=== PATIENT | female | born 1970 | race Hispanic/Latino ===

== ENCOUNTER 2020-02-01 23:33 | Emergency (ER) | payer OTHER ==
[~2020-02-01 23:33] MED LIST: LEVO500T2 PO
[2020-02-01 23:55] LABS: BASOPHILS % (AUTO) 0.4 % (0.0-5.0); EOSINOPHILS % (AUTO) 2.7 % (0.0-8.0); HEMATOCRIT 39.2 % (36-48); LYMPHOCYTES % (AUTO) 23.6 % (21.0-51.0); MEAN CORPUSCULAR HEMOGLOBIN 29.8 pg (27.0-33.0); MEAN CORPUSCULAR HGB CONC 33.4 g/dL (32.0-36.0); MEAN CORPUSCULAR VOLUME 89.3 fL (79-99); MONOCYTES % (AUTO) 6.5 % (3.0-13.0); NEUTROPHILS % (AUTO) 65.8 % (40.0-77.0); PLATELET COUNT (AUTO) 240 K/uL (130-400); RED BLOOD CELL COUNT(AUTO) 4.39 MIL/uL (4.00-5.50); RED CELL DISTRIBUTION WIDTH 11.9 % (11.0-15.5); WHITE BLOOD COUNT (AUTO) 6.8 K/uL (4.8-10.8)
[2020-02-02 00:04] LABS: POTASSIUM 3.7 mmol/L (3.5-5.1)
[2020-02-02 00:08] LABS: ALBUMIN 3.2 g/dL (3.5-5.0); BILIRUBIN,TOTAL 0.2 mg/dL (0.2-1.0); TOTAL PROTEIN, SERUM 6.3 g/dL (6.0-8.3)
[2020-02-02 00:15] LABS: INR 0.87 (0.85-1.15); PARTIAL THROMBOPLASTIN TIME 22.9 SEC (26.3-35.5); PROTHROMBIN TIME 9.4 SEC (9.6-11.6)
[2020-02-02] MEDS ORDERED: HYDROCORTISONE 25 MG SUPPOSITORY PR ONE (01:04)
== END 2020-02-02 01:12 | disposition home or self-care (01) ==
LOC: EDH 23:33
DX: K64.0 First degree hemorrhoids (principal); R03.0 Elevated blood-pressure reading, without diagnosis of hypertension; K45.8 Other specified abdominal hernia without obstruction or gangrene; Z90.49 Acquired absence of other specified parts of digestive tract; Z98.51 Tubal ligation status
CPT/HCPCS: 36415; 80053; 82150; 83690; 85025; 85610; 85730

== ENCOUNTER 2021-08-07 21:31 | Emergency (ER) | payer OTHER ==
[~2021-08-07] VITALS: Ht 152.4 cm; Wt 86.2 kg
[2021-08-07 21:49] VITALS: BP 119/90
[2021-08-07] MEDS ORDERED: ONDANSETRON 4MG INJ IVP ONE (22:30)
[2021-08-07] MEDS ORDERED: MORPHINE 2 MG SYG IVP ONE (22:30)
[2021-08-07] MEDS ORDERED: 0.9%NACL 1000ML 1,000 ML IV ONE (22:30)
[2021-08-07 22:31] LABS: APPEARANCE,URINE Clear (CLEAR); BASOPHILS % (AUTO) 0.6 % (0.0-5.0); BILIRUBIN,URINE Negative (NEGATIVE); COLOR,URINE Yellow (YELLOW); EOSINOPHILS % (AUTO) 2.4 % (0.0-8.0); GLUCOSE, URINE (UA) Negative (NEGATIVE); HEMATOCRIT 35.4 % (36-48); KETONES,URINE Negative (NEGATIVE); LEUKOCYTE ESTERASE ,URINE Moderate (NEGATIVE); LYMPHOCYTES % (AUTO) 25.2 % (21.0-51.0); MEAN CORPUSCULAR HEMOGLOBIN 22.5 pg (27.0-33.0); MEAN CORPUSCULAR HGB CONC 30.5 g/dL (32.0-36.0); MEAN CORPUSCULAR VOLUME 73.9 fL (79-99); MONOCYTES % (AUTO) 6.4 % (3.0-13.0); NITRATE,URINE Negative (NEGATIVE); OCCULT BLOOD,URINE Negative (NEGATIVE); PH,URINE 5.5 (5.0-8.0); PLATELET COUNT (AUTO) 265 K/uL (130-400); PROTEIN,URINE Negative (NEGATIVE); RED BLOOD CELL COUNT(AUTO) 4.79 MIL/uL (4.00-5.50); RED CELL DISTRIBUTION WIDTH 18.3 % (11.0-15.5); UROBILINOGEN,URINE 0.2 mg/dL (0.2-1.0); WHITE BLOOD COUNT (AUTO) 7.2 K/uL (4.8-10.8)
[2021-08-07 22:44] LABS: AMORPHOUS SEDIMENT,UR Few /LPF (None Seen); BACTERIA,URINE Few /HPF (None Seen); CALCIUM OXALATE CRYSTALS,UR Moderate /LPF (None Seen); MUCUS,URINE Rare LPF (None Seen); RBC,URINE None Seen /HPF (0-1)
[2021-08-07 22:45] LABS: CREATININE 0.8 mg/dL (0.5-1.5); POTASSIUM 3.5 mmol/L (3.5-5.1)
[2021-08-07 22:50] LABS: ALBUMIN 3.8 g/dL (3.5-5.0); BILIRUBIN,TOTAL 0.3 mg/dL (0.2-1.0); TOTAL PROTEIN, SERUM 7.1 g/dL (6.0-8.3)
[2021-08-08] MEDS ORDERED: MORPHINE 2 MG SYG ONE (00:13)
[2021-08-08] MEDS ORDERED: 0.9%NACL 1000ML 1,000 ML IV ONE (00:13)
[2021-08-08] MEDS ORDERED: ONDANSETRON 4MG INJ ONE (00:13)
[2021-08-08] MEDS ORDERED: KETOROLAC 30MG VIAL (30MG/ML) IM ONE (00:30)
[2021-08-08] MEDS ORDERED: LEVOFLOXACIN 500 MG TABLET PO SCH (00:30)
[2021-08-08] MEDS ORDERED: PHENAZOPYRIDINE HCL 200 MG TABLET PO ONE (01:30)
[2021-08-08 02:01] VITALS: BP 127/68
[2021-08-08] MEDS ORDERED: IBUP-2070 PO (02:01)
[2021-08-08] MEDS ORDERED: CIPR-278 PO (02:01)
[2021-08-08] MEDS ORDERED: PHEN-847 PO (02:01)
[2021-08-08] MEDS ORDERED: LOPE2 PO (02:01)
[2021-08-08] MEDS ORDERED: FAMOTIDINE 20MG TAB ONE (02:57)
[2021-08-08] MEDS ORDERED: DiphenhydrAMINE HCL 50 MG/ML VIAL ONE (02:57)
[2021-08-08] MEDS ORDERED: SOLU-MEDROL 125MG VIAL ONE (02:58)
[2021-08-08] MEDS ORDERED: FAMOTIDINE 20MG TAB PO ONE (03:00)
[2021-08-08] MEDS ORDERED: SOLU-MEDROL 125MG VIAL IM ONE (03:00)
[2021-08-08] MEDS ORDERED: DiphenhydrAMINE HCL 50 MG/ML VIAL IM ONE (03:00)
[2021-08-08 03:26] VITALS: BP 132/65
== END 2021-08-08 05:16 | disposition home or self-care (01) ==
LOC: EDH 21:31
DX: K52.9 Noninfective gastroenteritis and colitis, unspecified (principal); N30.00 Acute cystitis without hematuria; K43.9 Ventral hernia without obstruction or gangrene; I10 Essential (primary) hypertension; F41.9 Anxiety disorder, unspecified; Z79.899 Other long term (current) drug therapy
CPT/HCPCS: 36415; 74176; 80053; 81001; 82550; 83690; 84484; 85025; 87088; 96361; 96372 ×2; 96374; 96375; 99285; J1200; J1885; J2405; J2930; J7030

== ENCOUNTER 2023-03-18 20:43 | Emergency (ER) | payer OTHER ==
[~2023-03-18] VITALS: Ht 152.4 cm; Wt 88.5 kg
[~2023-03-18 20:43] MED LIST changes: +CIPR-278 PO; +IBUP-2070 PO; +LOPE2 PO; +PHEN-847 PO
[2023-03-18] MEDS ORDERED: ONDANSETRON 4MG TABLET PO ONE (21:00)
[2023-03-18] MEDS ORDERED: ONDANSETRON ODT 4MG TAB ONE (21:02)
[2023-03-18 21:15] VITALS: BP 128/74
[2023-03-18 21:22] LABS: BASOPHILS % (AUTO) 0.6 % (0.0-5.0); EOSINOPHILS % (AUTO) 3.2 % (0.0-8.0); HEMATOCRIT 34.4 % (36-48); LYMPHOCYTES % (AUTO) 23.5 % (21.0-51.0); MEAN CORPUSCULAR HEMOGLOBIN 21.4 pg (27.0-33.0); MEAN CORPUSCULAR HGB CONC 29.4 g/dL (32.0-36.0); MEAN CORPUSCULAR VOLUME 72.9 fL (79-99); MONOCYTES % (AUTO) 10.6 % (3.0-13.0); NEUTROPHILS % (AUTO) 61.7 % (40.0-77.0); PLATELET COUNT (AUTO) 207 K/uL (130-400); RED BLOOD CELL COUNT(AUTO) 4.72 MIL/uL (4.00-5.50); RED CELL DISTRIBUTION WIDTH 16.2 % (11.0-15.5); WHITE BLOOD COUNT (AUTO) 4.7 K/uL (4.8-10.8)
[2023-03-18] MEDS ORDERED: 0.9%NACL 1000ML 2,000 ML IV ONE (21:30)
[2023-03-18 21:36] LABS: CREATININE 0.8 mg/dL (0.5-1.5); POTASSIUM 3.4 mmol/L (3.5-5.1)
[2023-03-18 21:40] LABS: ALBUMIN 3.8 g/dL (3.5-5.0); TOTAL PROTEIN, SERUM 7.2 g/dL (6.0-8.3)
[2023-03-18] MEDS ORDERED: DIPH1TAB PO (22:07)
[2023-03-18] MEDS ORDERED: ONDA-104 PO (22:07)
== END 2023-03-18 23:57 | disposition home or self-care (01) ==
LOC: EDH 20:43
DX: K52.9 Noninfective gastroenteritis and colitis, unspecified (principal); I10 Essential (primary) hypertension; F41.9 Anxiety disorder, unspecified; Z20.822 Contact with and (suspected) exposure to COVID-19; Z79.899 Other long term (current) drug therapy; Z90.49 Acquired absence of other specified parts of digestive tract; Z98.890 Other specified postprocedural states
CPT/HCPCS: 99283; 96360; 87635; 96361; 82150; 80053; 83690; 85025; 87804 ×2; 36415; C9803; J7030

== ENCOUNTER 2024-06-08 13:50 | Emergency (ER) | payer BC ==
[~2024-06-08] VITALS: Ht 152.4 cm; Wt 88.5 kg
[~2024-06-08 13:50] MED LIST changes: -CIPR-278 PO; +DIPH1TAB PO; -IBUP-2070 PO; -LEVO500T2 PO; -LOPE2 PO; +ONDA-104 PO; -PHEN-847 PO
[2024-06-08 15:47] LABS: BASOPHILS # (AUTO) 0.04 K/uL (0.00-0.20); BASOPHILS % (AUTO) 0.5 % (0.0-5.0); EOSINOPHILS # (AUTO) 0.08 K/uL (0.00-0.70); HEMATOCRIT 27.1 % (36-48); IMMATURE GRANULOCYTE ABSOLUTE 0.06 K/uL (0-1); LYMPHOCYTES % (AUTO) 23.6 % (21.0-51.0); MEAN CORPUSCULAR HEMOGLOBIN 17.9 pg (27.0-33.0); MEAN CORPUSCULAR HGB CONC 26.9 g/dL (32.0-36.0); MEAN CORPUSCULAR VOLUME 66.4 fL (79-99); MONOCYTES # (AUTO) 0.7 K/uL (0.1-1.0); MONOCYTES % (AUTO) 8.4 % (3.0-13.0); NEUTROPHILS # (AUTO) 5.4 K/uL (1.8-7.7); NEUTROPHILS % (AUTO) 65.8 % (40.0-77.0); PLATELET COUNT (AUTO) 209 K/uL (130-400); RED BLOOD CELL COUNT(AUTO) 4.08 MIL/uL (4.00-5.50); WHITE BLOOD COUNT (AUTO) 8.3 K/uL (4.8-10.8)
[2024-06-08 15:56] LABS: CREATININE 0.7 mg/dL (0.5-1.0); POTASSIUM 4.1 mmol/L (3.5-5.1)
[2024-06-08 16:00] LABS: ALBUMIN 3.3 g/dL (3.5-5.0); BILIRUBIN,TOTAL 0.5 mg/dL (0.2-1.0); TOTAL PROTEIN, SERUM 7.7 g/dL (6.0-8.3)
[2024-06-08 16:12] LABS: RAPID GROUP A STREP negative (NEGATIVE)
[2024-06-08 16:15] LABS: SARS-CoV-2, RNA, NAAT NEGATIVE SARS CoV-2 (NEGATIVE)
[2024-06-08 16:22] LABS: INFLUENZA TYPE A Negative For Type A (NEGATIVE); INFLUENZA TYPE B Negative For Type B (NEGATIVE)
[2024-06-08] MEDS ORDERED: AZIT250T PO (17:54)
[2024-06-08 17:55] VITALS: BP 128/62; PULSE 87; RESP 16; O2SAT 99
[2024-06-08] MEDS ORDERED: FERR-82 PO (18:05)
[2024-06-08] MEDS ORDERED: MAGN400O17 PO (18:05)
== END 2024-06-08 18:52 | disposition home or self-care (01) ==
LOC: EDH 13:50
DX: D64.9 Anemia, unspecified (principal); Z20.822 Contact with and (suspected) exposure to COVID-19; B34.9 Viral infection, unspecified; J18.9 Pneumonia, unspecified organism; I10 Essential (primary) hypertension; F41.9 Anxiety disorder, unspecified; Z88.8 Allergy status to other drugs, medicaments and biological substances; Z79.899 Other long term (current) drug therapy; Z90.49 Acquired absence of other specified parts of digestive tract; Z98.890 Other specified postprocedural states
CPT/HCPCS: 36415; 71045; 80053; 84484; 85025; 87635; 87804; 87880; 93005